=== PATIENT | female | born 1990 | race Caucasian/White ===

== ENCOUNTER 2020-11-08 20:51 | Emergency (ER) | payer OTHER ==
--- NOTE | 2020-11-08 21:16 | EDM.PDOC ---
ED HPI GENERAL MEDICAL PROBLEM - General Chief Complaint: Upper Extremity Injury/Pain Stated Complaint: ARM INJURY Time Seen by Provider: 11/08/20 21:10 Source of Information: Reports: Patient History Limitations: Reports: No Limitations - History of Present Illness INITIAL COMMENTS - FREE TEXT/NARRATIVE: Female presents to the ED for evaluation of pain distal right wrist and forearm as well as hand. She states she slipped earlier this morning and ice and pothole which caused her to fall on outstretched right hand. She been putting up with pain all day long and has been getting gradually worse. Has no ability to pronate or supinate the hand at the wrist. Feels pain in the wrist radiates up towards the right elbow. Cannot make a fist either. Denies any other injuries. Denies any chance of . Onset: Today, Sudden Onset Date: 11/08/20 Onset Time: 00:00 Duration: Hour(s):, Getting Worse Location: Reports: Upper Extremity, Right Quality: Reports: Ache, Throbbing (And right wrist hand and forearm to the el bow.) Severity: Moderate Improves with: Reports: Rest Worsens with: Reports: Movement Context: Reports: Trauma (Slipped on ice when she stepped in a pothole.). Denies: Activity (Attempt to supinate pronate the forearm causes exquisite pain.), Exercise, Lifting, Sick Contact Associated Symptoms: Reports: No Other Symptoms Treatments [employer]: Reports: Acetaminophen, NSAIDS (Motrin.) Right Arm Pain Score (Numeric/FACES): 6 - Related Data Allergies Allergy/AdvReac Type Severity Reaction Status Date / Time cefaclor [From [facility]] Allergy Hives Verified 11/08/20 21:17 Home Meds: Home Meds FLUoxetine [PROzac] 40 mg PO DAILY 11/08/20 [History] Levothyroxine Sodium [Synthroid] 200 mcg PO DAILY 11/08/20 [History] Levothyroxine [Synthroid] 50 mcg PO DAILY 11/08/20 [History] Review of Systems - Review of Systems Review Of Systems: See Below Constitutional: Reports: No Symptoms Eyes: Reports: No Symptoms Ears: Reports: No Symptoms Nose: Reports: No Symptoms Mouth/Throat: Reports: No Symptoms Respiratory: Reports: No Symptoms Cardiovascular: Reports: No Symptoms GI/Abdominal: Reports: No Symptoms Genitourinary: Reports: No Symptoms Musculoskeletal: Reports: Arm Pain (Right forearm wrist pain) Skin: Reports: No Symptoms Neurological: Reports: No Symptoms Psychiatric: Reports: No Symptoms ED EXAM, GENERAL - Physical Exam Exam: See Below Exam Limited By: No Limitations General Appearance: Alert, WD/WN, Mild Distress, Other (She is holding her arm very gingerly across her chest. Any attempt to pronate or supinate of the forearm causes exquisite pain.) Eye Exam: Bilateral Eye: Normal Inspection (No scleral icterus or blepharal pallor.) Head: Atraumatic, Normocephalic Neck: Normal Inspection, Supple, Non-Tender, Full Range of Motion. No: Lymphadenopathy (L), Lymphadenopathy (R) Respiratory/Chest: No Respiratory Distress, Lungs Clear, Normal Breath Sounds, No Accessory Muscle Use, Chest Non-Tender Cardiovascular: Normal Peripheral Pulses, Regular Rate, Rhythm, No Edema, No Gallop, No Murmur, No Rub Peripheral Pulses: 2+: Radial (R) Extremities: Other (Examination reveals no obvious deformities to the wrist forearm on the right side. There is some superficial scratches abrasions slight bruising to the mid dorsal right hand. There appears to be some ecchymoses over the volar aspect of the right wrist. Any attempt to pronate or supinate the forea) Skin Exam: Warm, Dry, Intact, Normal Color, No Rash Course - Vital Signs Last Recorded V/S: Last Vital Signs Temp 36.1 C 11/08/20 21:07 Pulse 84 11/08/20 21:07 Resp 20 11/08/20 21:07 BP 131/97 H 11/08/20 21:07 Pulse Ox 97 11/08/20 21:07 - Orders/Labs/Meds Orders: Active Orders 24 hr Category Date Time Status Elbow Min 3V Rt [CR] Stat Exams 11/08/20 21:53 Taken Forearm 2V Rt [CR] Stat Exams 11/08/20 21:10 Ordered Hand Comp Min 3V Rt [CR] Stat Exams 11/08/20 21:11 Taken Durable Medical Equipment for Discharge [DME for Oth 11/08/20 22:13 Ordered Discharge] [COMM] Stat - Radiology Interpretation Free Text/Narrative:: 29-year-old female presents to the ED for evaluation of injury to the right upper extremity from a slip and fall early this morning around midnight. States she stepped in a pothole and it was icy and she fell on outstretched right hand. Complaining of gradually worsening pain since that time. Pain primarily in the wrist rating up to the right elbow. Unable to make a full fist and has no ability to pronate or supinate at the elbow. Plan x-rays of the right forearm and right hand to be obtained. - Re-Assessments/Exams Free Text/Narrative Re-Assessment/Exam: 11/08/20 22:05 extremities of the right hand and wrist reveal no carpal bone fractures and no meta carpal fractures. X-rays of the forearm reveal no forearm fractures either. Unfortunately films obtained of the elbow which are only 1 view on the forearm view are inadequate to confirm whether or not there could be a fracture in the radial head. Since patient is unable to pronate or supinate at the elbow I will have x-rays done of the elbow as well. 11/08/20 22:18: X-rays of the right elbow do not reveal any elevation of the anterior or posterior fat pads. The radial head also is intact with no obvious fractures. Patient will be placed in a sling for comfort measures. She will continue Motrin 600 mg every 6 hours as needed for pain relief. She can continue to ice the wrist for 1/2-hour out of every 4 hours for the next day a and a half. Expect gradual improvement with full return of full range of motion within 8-10 days Departure - Departure Time of Disposition: 22:12 Disposition: Home, Self-Care 01 Condition: Fair Clinical Impression: Contusion of right wrist, initial encounter, Contusion of right elbow and forearm - Discharge Information *PRESCRIPTION DRUG MONITORING PROGRAM REVIEWED*: Not Applicable *COPY OF PRESCRIPTION DRUG MONITORING REPORT IN PATIENT KECIA: Not Applicable Referrals: PCP,None [Primary Care Provider] - Forms: ED Department Discharge Additional Instructions: Evaluation in the emergency room tonight in regards to injuries to the right hand wrist forearm and elbow area after slipping and falling late last night on outstretched hand. There is definite swelling of the dorsal hand and some mild bruising over the volar or palmar aspect of the right wrist. You have significant limitation of range of motion call pronation supination which means rotation at the elbow. X-rays of the right hand wrist forearm and elbow were completed and do not reveal any broken bones. Injury appears to be that of contusion with swelling and inflammation likely within the carpal bones in your right wrist as well as within your right elbow joint. Expect pain to settle down over the next 7 to 8 days. Continue Motrin 600 mg every 6 hours needed to reduce pain and inflammation. Ice pack to the right wrist area 1/2-hour out of every 4 hours for the rest of today and after this may use heat. Right arm sling for comfort measures for the next few days if you find it helpful. Sepsis Event Note (ED) - Focused Exam Vital Signs: Vital Signs Temp Pulse Resp BP Pulse Ox 11/08/20 21:07 36.1 C 84 20 131/97 H 97 - My Orders Last 24 Hours: My Active Orders 11/08/20 21:10 Forearm 2V Rt [CR] Stat 11/08/20 21:11 Hand Comp Min 3V Rt [CR] Stat 11/08/20 21:53 Elbow Min 3V Rt [CR] Stat 11/08/20 22:13 Durable Medical Equipment for Discharge [DME for Discharge] [COMM] Stat - Assessment/Plan Last 24 Hours: My Active Orders 11/08/20 21:10 Forearm 2V Rt [CR] Stat 11/08/20 21:11 Hand Comp Min 3V Rt [CR] Stat 11/08/20 21:53 Elbow Min 3V Rt [CR] Stat 11/08/20 22:13 Durable Medical Equipment for Discharge [DME for Discharge] [COMM] Stat
--- NOTE | 2020-11-09 10:10 | CR ---
Right hand: 3 views of the right hand were obtained. Joint spaces are preserved. No acute fracture, dislocation or other bony abnormality is appreciated. No radiopaque object is seen within the soft tissues. Impression: 1. Nothing acute is appreciated on 3 view right hand exam. Diagnostic code #1
--- NOTE | 2020-11-09 10:10 | CR ---
Right forearm: 2 views of the right forearm were obtained. Comparison: No prior forearm study is available. No acute fracture or other osseous abnormality is appreciated. Impression: 1. Nothing acute is appreciated on 2 view right forearm exam. Diagnostic code #1
--- NOTE | 2020-11-09 10:11 | CR ---
Right elbow: 4 views of the right elbow were obtained. Comparison: No previous study. No joint effusion is seen. Joint spaces are maintained. No abnormal soft tissue calcifications are seen. No acute fracture or dislocation is seen. Impression: 1. Nothing acute is seen on right elbow study. Diagnostic code #1
== END 2020-11-08 22:30 | disposition home or self-care (01) ==
LOC: JD.ED 20:51
DX: S60.211A Contusion of right wrist, initial encounter (principal); S50.11XA Contusion of right forearm, initial encounter; Z88.1 Allergy status to other antibiotic agents; W00.0XXA Fall on same level due to ice and snow, initial encounter
CPT/HCPCS: 73080-26-RT; 73080-RT; 73090-26-RT; 73090-RT; 73130-26-RT; 73130-RT; 99282; 99283-25